=== PATIENT | male | born 1960 | race Two or more races ===

== ENCOUNTER → 2024-01-10 19:47 | Day surgery (SDC) | payer BC, SELFPAY ==
[2024-01-10 12:59] VITALS: BP 156/96
[2024-01-10] MEDS: PEPCID 20 MG IV (15:51)
[2024-01-10 15:56] LABS: % Basophils 0.6 % (0-2); % Eosinophils 1.7 % (0-6); % Immature Granulocytes 0.2 % (0-0.5); % Neutrophils 73.5 % (42.2-75.2); Absolute Basophils 0.1 10^3/uL (0-0.2); Absolute Eosinophils 0.1 10^3/uL (0-0.7); Absolute Lymphocytes 1.3 10^3/uL (1.2-3.4); Absolute Monocytes 0.7 10^3/uL (0.1-0.6); Hemoglobin 15.9 g/dL (13.0-18.0); Mean Corp Hgb Conc. 36.1 g/dL (33.0-37.0); Mean Corpuscular Hgb 32.9 pg (27.0-31.0); Mean Corpuscular Volume 91.1 fL (80.0-94.0); Mean Platelet Volume 10.4 fL (7.4-10.4); Nucleated Red Blood Cells % 0 % (-); Platelet Count 220 10^3/uL (130-400); Red Blood Cell Count 4.83 10^6/uL (4.70-6.10); Red Cell Dist. Width 13.1 % (11.5-14.5); White Blood Cell Count 8.2 10^3/uL (4.8-10.8)
[2024-01-10 16:15] LABS: Blood Urea Nitrogen 16 mg/dl (9-20); Calcium 10.1 mg/dl (8.4-10.2); Carbon Dioxide 25 mmol/L (22-30); Chloride 101 mmol/L (98-107); Glucose 88 mg/dl (70-99); Potassium 4.3 mmol/L (3.5-5.1); Sodium 138 mmol/L (135-145); eGFR > 60.00
--- NOTE | 2024-01-10 17:13 | ED.GENMED ---
History of Present Illness
General
Chief Complaint: Esophageal Problem
Source: patient
Exam Limitations: none
Time Seen by Provider: 01/10/24 14:52
Nursing documentation reviewed up to this point in time: agreed with
Travel History
Have you had any contact with someone who has COVID-19?: No
Do you have any symptoms of coronavirus? Fever > 100 degrees, chills, cough, shortness of breath, sore throat, loss of taste or smell, muscle aches, or headache?: No
History of Present Illness
History of Present Illness:
63-year-old male without significant past medical history presenting to the emergency department today with concerns of what he believes is chicken stuck in his distal esophagus over the past 18 hours prior to arrival. He has been with tolerate
some fluids but when he ate Jell-O symptoms worsen. Has not been vomiting.
Review of Systems
Review of Systems
Allergies reviewed?: Yes
All Other Systems: ROS reviewed and negative except as documented in HPI and ROS
Phy Exam
Physical Exam
Physical Exam:
GENERAL: Alert , in no apparent distress
EYE: pupils equal and reactive
NECK: Supple, no significant adenopathy.
ENT: o/p clr, mmm.
CARDIAC: Regular rate and rhythm .
LUNGS: Clear breath sounds bilaterally, no acute respiratory distress, no wheezes/rales/rhonchi
ABDOMEN: Soft, without focal tenderness, no r/g, no cvat
NEUROLOGICAL: Alert and oriented, no focal neuro deficits
SKIN: Warm and dry, skin intact.
MUSCULOSKELETAL: No edema, well perfused.
PSYCH: Normal and appropriate interaction.
Course
Orders/Labs/Results
Orders:
Orders
01/10/24 15:23
Famotidine [Pepcid] 20 mg IV NOW STA
01/10/24 15:39
CT Chest W/o Iv Contrast Urgent
Comment:
Reason For Exam: esophageal fb eval, discussed with Shaun Hernandez
01/10/24 15:41
BMP [Basic Metabolic Panel] Urgent
CBC/With Diff [Complete Blood Count/With Diff] Urgent
01/10/24 17:46
HYDROmorphone [Dilaudid] 0.25 mg IV PACU-[id number] PRN
HYDROmorphone [Dilaudid] 0.5 mg IV PACU-Q5MPRN PRN
Meperidine [Demerol] 12.5 mg IV PACU-Q5MPRN PRN
Ondansetron Injectable [Zofran] 4 mg IV PACU-ONCEPRN PRN
Prochlorperazine [Compazine] 5 mg IV PACU-ONCEPRN PRN
Notify MD As Directed
Notify physician if: for SDS patients with known or suspected sleep obstructive sleep apnea, monitor in the
PACU.
Notify MD for any apneic/desaturation episodes
O2 Therapy [RESP] Urgent
Titrate/Wean O2 to maintain O2 sat greater than (%): 92
Special Instructions: -Provide supplemental oxygen to achieve O2 sat of 92% or greater.
-After 15 min, may wean O2 and discontinue if patient is able to maintain O2 sat of 92%
or greater during recovery period.
If patient is a discharge home, without oxygen therapy, notify anestheiologist if
unable to maintain O2 SAT of 92% or greater on room air for MD clearance.
01/10/24 18:00
Normosol (Mult Electrolytes) [Normosol-R] 1,000 ml IV PER PROTOCOL
Abnormal Lab Results
01/10/24
15:41
MCH 32.9 H pg
(27.0-31.0)
Absolute Monos (auto) 0.7 H 10^3/uL
(0.1-0.6)
Lymphocytes % 16.0 L %
(20.5-51.1)
01/10/24 15:41
01/10/24 15:41
Vital Signs
Initial and Last Documented VS:
Initial Vital Signs
Temp Pulse Resp BP Pulse Ox
98.4 F 81 16 156/96 98
01/10/24 12:59 01/10/24 12:59 01/10/24 12:59 01/10/24 12:59 01/10/24 12:59
Last Documented Vital Signs
Temp Pulse Resp BP Pulse Ox
98.4 F 81 16 156/96 98
01/10/24 12:59 01/10/24 12:59 01/10/24 12:59 01/10/24 12:59 01/10/24 12:59
MDM/Problems Addressed
MDM/Problems Addressed:
63-year-old male presenting to the emergency department today with concerns of discomfort to the central chest after eating chicken last night and he is concerned that there is a esophageal foreign body. He has been able to tolerate some fluids.
Here he was given austin beckie but having difficulty tolerating this. Case was discussed with GI and was somewhat unclear whether was a true impaction or not concerning was tolerating fluids up until arrival. CT scan was performed that did show
likely distal food impaction. Case was then discussed once again with GI. Who plan to take him to the GI suite for endoscopy.
*Critical Care Note
Total Time (30-74mins, 75-104mins- exclusive of procedures): Not Applicable
ED Attending Note
-
Portions of this chart may have been created with voice recognition software.� Occasional wrong word or��sound alike� substitutions may have occurred due to the inherent limitations of voice recognition software.
Discharge Plan
Departure
Patient Disposition: GI LAB
Date of Disposition: 01/10/24
Time of Disposition: 17:32
Admit to doctor: Booker
Presentation/result/management discussed w/ accepting MD/DO: GI doctor
Patient with high blood pressure during this ER visit?: No
Condition: Good
Covid-19: Not Applicable
Discharge Problem:
Esophageal foreign body
Prescriptions:
No Action
multivitamin Tablet
1 tab PO DAILY
finasteride 1 mg Tablet
1 mg PO DAILY
Referrals:
June Mcneil MD [Family Provider] -
Interventions
Interventions:
*ED COVID-19 Vaccine History Last Done: 01/10/24 12:59
VU-Xwqmaf-Eurnckshhv Assessment Last Done: 01/10/24 15:50
ED-EENT Assessment Last Done: 01/10/24 15:50
Discharge Date and Time
Print Language: [place]LAND[place]
--- NOTE | 2024-01-10 17:58 | CON.GI ---
Consultation
-
Date/Time Consultation Requested: 01/10/24
Date/Time Consultation Performed: 01/10/24
Requesting Provider: Fady FORBES
Performing Provider:
Reason for Consultation: food bolus
Medical History
Chief Complaint / HPI
Chief Complaint: food bolus impaction, chest discomfort
History of Present Illness:
This is a very pleasant 63-year-old male with no prior history of food bolus impaction, colon polyps presented to the emergency room with symptoms of food being stuck. He says that he had eaten chicken and after the first bite of chicken yesterday
for dinner he was unable to swallow liquids or secretions and he then subsequently tried to drink some austin beckie felt slightly better was able to go to sleep but today morning he woke up and still felt that it was stuck and he tried more austin beckie
and also some Jell-O in the afternoon and he felt very uncomfortable after eating the Jell-O with chest discomfort and presented to the emergency room. He had a CT chest in the ER which showed impacted food bolus in the distal esophagus. He is
currently able to swallow some secretions. No nausea or vomiting. He says that he has had about 2 or 3 similar episodes in the past last episode was about 2 years ago and most of those episodes were after steak but he was able to pass the food
after a couple of hours on his own at home and did not require endoscopy with removal of food bolus. He says that he saw clinical appeals auditor about 8 years ago and had an endoscopy at that time and was told he had GERD and was treated with PPI for
short period of time but no prior history of stricture or ring. He also denies any symptoms of reflux currently. His last colonoscopy was about 3 years ago at [facility] and had colon polyps and was recommended repeat in 5 years.
Past Medical History
Past Medical History: Other (colon polyps, GERD, food bolus impaction, DDD)
Past Surgical History: None
Social History
Tobacco: Non-Smoker
Alcohol: Occasional
Drug: None
Family History
Family History: Reviewed & Not Pertinent
Allergies / Home Medications
Allergy/AdvReac Type Severity Reaction Status Date / Time
No Known Allergies Allergy Unverified 01/10/24 12:58
Review of Systems
-
All other systems: A 12 pt ROS was Negative except as stated above in HPI
Vital Signs
Temp Pulse Resp BP Pulse Ox
98.4 F 81 16 156/96 98
01/10/24 12:59 01/10/24 12:59 01/10/24 12:59 01/10/24 12:59 01/10/24 12:59
Physical Exam
Exam
General: Well Developed and No Apparent Distress
HEENT: Normocephalic
Respiratory: Clear
Cardiac: S1/S2 and Regular Rhythm
GI: Soft, Non Tender, Non Distended and Normal Bowel Sounds
Skin: Warm
Neuro: Awake, Alert and Oriented
Psych: Calm
Results
WBC 8.2 10^3/uL (4.8-10.8) 01/10/24 15:41
Hgb 15.9 g/dL (13.0-18.0) 01/10/24 15:41
Hct 44.0 % (39.0-52.0) 01/10/24 15:41
MCV 91.1 fL (80.0-94.0) 01/10/24 15:41
Plt Count 220 10^3/uL (130-400) 01/10/24 15:41
Absolute Neuts (auto) 6.0 10^3/uL (1.4-6.5) 01/10/24 15:41
Sodium 138 mmol/L (135-145) 01/10/24 15:41
Potassium 4.3 mmol/L (3.5-5.1) 01/10/24 15:41
Chloride 101 mmol/L (98-107) 01/10/24 15:41
Carbon Dioxide 25 mmol/L (22-30) 01/10/24 15:41
BUN 16 mg/dl (9-20) 01/10/24 15:41
Creatinine 0.8 mg/dL (0.7-1.3) 01/10/24 15:41
Calcium 10.1 mg/dl (8.4-10.2) 01/10/24 15:41
Diagnostic Image Results:
CT chest 01/10/24
IMPRESSION:
1. 3.3 cm IMPACTED FOOD BOLUS in the DISTAL ESOPHAGEAL LUMEN.
2. No CT evidence for esophageal perforation.
3. 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
Prior GI Procedures:
EGD: 8 years ago
Colonoscopy: 3 years ago at [facility]
Assessment / Plan
-
1.This is a 63-year-old male who presented with food bolus after eating a large piece of chicken for dinner yesterday evening. He has had 2-3 similar episodes in the past but spontaneously passed at home for those episodes. Will schedule him for
an endoscopy with removal of food bolus. As described above he had an endoscopy over 8 years ago and was told he had GERD after his first episode of food bolus impaction and no prior history of stricture/ring or EOE. He also denies any symptoms of
reflux.
2 history of colon polyps he had a colonoscopy about 3 years ago at [facility] and was told to come back in 5 years
Data Reviewed
-
CT Scan: Report Reviewed by me
-
-
Thank you for consultation and allowing me to participate in the patient's care. Please call the international controller GI physician during the after hours with any questions or concerns.
[2024-01-10 18:54] VITALS: BP 145/96; BP 156/96
[2024-01-10 19:00] VITALS: BP 119/104
[2024-01-10 19:12] VITALS: BP 139/93
[2024-01-10 19:30] VITALS: BP 123/90
[2024-01-10 19:45] VITALS: BP 132/93
== END ==
LOC: EMR 12:37 → GI 19:47
PROVIDERS: Physician Assistant; ATTENDING PHYSICIAN Internal Medicine Gastroenterology; EMERGENCY PHYSICIAN Emergency Medicine; FAMILY PHYSICIAN Family Medicine
DX: T18.128A Food in esophagus causing other injury, initial encounter (principal); R10.13 Epigastric pain; W44.F3XA Food entering into or through a natural orifice, initial encounter; R13.14 Dysphagia, pharyngoesophageal phase; K44.9 Diaphragmatic hernia without obstruction or gangrene; K20.90 Esophagitis, unspecified without bleeding
CPT/HCPCS: 43247; 71250; 80048; 85025; 96374; 99284

== ENCOUNTER → 2024-04-22 06:29 | Day surgery (SDC) | payer BC, SELFPAY | LOC: GI 06:29 | PROVIDERS: ATTENDING PHYSICIAN Internal Medicine Gastroenterology; FAMILY PHYSICIAN Family Medicine | DX: R13.14 Dysphagia, pharyngoesophageal phase (principal); R12 Heartburn; K22.2 Esophageal obstruction; K44.9 Diaphragmatic hernia without obstruction or gangrene; K21.00 Gastro-esophageal reflux disease with esophagitis, without bleeding | CPT/HCPCS: 43249 ==

== ENCOUNTER → 2025-04-21 12:58 | Outpatient (REF) | payer BC, SELFPAY | LOC: MRI 3T 12:58 | PROVIDERS: ATTENDING PHYSICIAN Orthopaedic Surgery; FAMILY PHYSICIAN Family Medicine | DX: M23.42 Loose body in knee, left knee (principal) | CPT/HCPCS: 73721 ==